=== PATIENT | female | born 1960 | race Hispanic/Latino ===

== ENCOUNTER → 2023-04-12 10:57 | Outpatient (REF) | payer OTHER, SELFPAY | LOC: RCS 10:57 | PROVIDERS: ATTENDING PHYSICIAN Internal Medicine Cardiovascular Disease; FAMILY PHYSICIAN Nurse Practitioner Adult Health | DX: R07.89 Other chest pain (principal) | CPT/HCPCS: 93017 ==

== ENCOUNTER → 2023-04-19 14:53 | Outpatient (REF) | payer OTHER, SELFPAY | LOC: DHCBC HW 14:53 | PROVIDERS: ATTENDING PHYSICIAN Internal Medicine Cardiovascular Disease; FAMILY PHYSICIAN Nurse Practitioner Adult Health | DX: I51.7 Cardiomegaly (principal) | CPT/HCPCS: 93306 ==

== ENCOUNTER 2024-11-27 03:31 | Emergency (ER) | payer OTHER, SELFPAY ==
[2024-11-27 03:39] VITALS: BP 160/92
[2024-11-27 04:30] LABS: Hematocrit 34.3 % (37.0-47.0); Hemoglobin 10.9 g/dL (12.0-16.0); Mean Corp Hgb Conc. 31.8 g/dL (33.0-37.0); Mean Corpuscular Volume 82.9 fL (81.0-99.0); Nucleated Red Blood Cells % 0 %; Platelet Count 253 10^3/uL (130-400); Red Cell Dist. Width 13.6 % (11.5-14.5)
[2024-11-27 04:53] LABS: ALT (SGPT) 17 U/L (0-35); AST (SGOT) 23 U/L (14-36); Albumin 3.7 g/dl (3.5-5.0); Alkaline Phosphatase 51 U/L (38-126); Blood Urea Nitrogen 24 mg/dl (7-17); Calcium 8.9 mg/dl (8.4-10.2); Carbon Dioxide 27 mmol/L (22-30); Chloride 112 mmol/L (98-107); Glucose 103 mg/dl (70-99); Potassium 4.0 mmol/L (3.5-5.1); Sodium 142 mmol/L (135-145); Total Protein 6.6 g/dl (6.3-8.2); eGFR > 60.00
[2024-11-27 05:16] VITALS: BP 133/82
--- NOTE | 2024-11-27 05:18 | EDRN ---
patient endorses substernal chest pain associated with cough x several days.
[2024-11-27] MEDS: TORADOL 30 MG IV (05:37)
[2024-11-27 05:39] VITALS: BMI 35.0
[2024-11-27 06:21] VITALS: BP 118/71
[2024-11-27 06:24] LABS: Troponin I < 0.012 ng/ml
--- NOTE | 2024-11-27 06:34 | ED.GENMED ---
History of Present Illness
General
Chief Complaint: Chest Problem
Source: patient and family
Exam Limitations: none
Time Seen by Provider: 11/27/24 04:57
Nursing documentation reviewed up to this point in time: agreed with
History of Present Illness
History of Present Illness:
64-year-old female past medical history of hypertension presenting to the emergency department today with concerns of chest discomfort while coughing has been ongoing over the past week. Symptoms possibly worse with coughing improved with not
coughing. Additionally has been on Cipro for potential UTI over the past few days. Denies any nausea vomiting shortness of breath
Past History
Past History
ED Past Medical History: HTN
ED Past Surgical History: Gynecological
Social History
Tobacco: Non-smoker
Alcohol: None
Drug: None
Living: with family
Employment: Employed
Family History
Family History: Other (nc)
Review of Systems
Review of Systems
Allergies reviewed?: Yes
All Other Systems: ROS reviewed and negative except as documented in HPI and ROS
Phy Exam
Physical Exam
Physical Exam:
GENERAL: Alert , in no apparent distress
EYE: pupils equal and reactive
NECK: Supple, no significant adenopathy.
ENT: o/p clr, mmm.
CARDIAC: Regular rate and rhythm .
LUNGS: Clear breath sounds bilaterally, no acute respiratory distress, no wheezes/rales/rhonchi
ABDOMEN: Soft, without focal tenderness, no r/g, no cvat
NEUROLOGICAL: Alert and oriented, no focal neuro deficits
SKIN: Warm and dry, skin intact.
MUSCULOSKELETAL: No edema, well perfused.
PSYCH: Normal and appropriate interaction.
Course
Orders/Labs/Results
Orders:
Orders
11/27/24 03:38
Electrocardiogram (*1) Urgent
Reason for Study: Chest Pain
11/27/24 03:39
EKG- Treatment ONCE
11/27/24 03:42
Chest [CR Chest - 2 Views ] Urgent
Comment:
Reason For Exam: COUGH
11/27/24 04:20
CMP [Comprehensive Metabolic Panel] Urgent
Complete Blood Count/With Diff Urgent
11/27/24 05:27
Ketorolac [Toradol] 30 mg IV NOW STA
11/27/24 05:36
Troponin I Urgent
Abnormal Lab Results
11/27/24
04:20
RBC 4.14 L 10^6/uL
(4.20-5.40)
Hgb 10.9 L g/dL
(12.0-16.0)
Hct 34.3 L %
(37.0-47.0)
MCH 26.3 L pg
(27.0-31.0)
MCHC 31.8 L g/dL
(33.0-37.0)
Immature Gran % 0.6 H %
(0-0.5)
Chloride 112 H mmol/L
(98-107)
BUN 24 H mg/dl
(7-17)
Glucose 103 H mg/dl
(70-99)
11/27/24 04:20
11/27/24 04:20
Vital Signs
Initial and Last Documented VS:
Initial Vital Signs
Temp Pulse Resp BP Pulse Ox
98.2 F 66 22 160/92 97
11/27/24 03:39 11/27/24 03:39 11/27/24 03:39 11/27/24 03:39 11/27/24 03:39
Last Documented Vital Signs
Temp Pulse Resp BP Pulse Ox
98.1 F 62 16 118/71 100
11/27/24 05:16 11/27/24 06:21 11/27/24 06:21 11/27/24 06:21 11/27/24 06:21
MDM/Problems Addressed
MDM/Problems Addressed:
64-year-old female presenting to the emergency department today with concerns of chest discomfort across the anterior aspect of the chest when coughing has had a cough over the past week or so has had some mild upper respiratory symptoms. Has been
on ciprofloxacin for potential urinary tract infection. On arrival here patient's vital signs showing elevated blood pressure otherwise vital signs are normal. Other labs at patient's baseline troponin negative EKG normal chest x-ray without
emergent findings. No evidence of any acute coronary syndrome likely secondary to patient's upper respiratory syndrome plan for symptomatic treatment otherwise advised for close primary care follow-up. Return precautions given.
*Pulse Oximetry
SaO2: 100
Oxygen Mode of Delivery: Room air
Patient hypoxic: no (100)
*Critical Care Note
Total Time (30-74mins, 75-104mins- exclusive of procedures): Not Applicable
ED Attending Note
-
Portions of this chart may have been created with voice recognition software.� Occasional wrong word or��sound alike� substitutions may have occurred due to the inherent limitations of voice recognition software.
Discharge Plan
Departure
Patient Disposition: Home (Routine Discharge)
Date of Disposition: 11/27/24
Time of Disposition: 06:35
Patient with high blood pressure during this ER visit?: No
Condition: Good
Covid-19: Not Applicable
Discharge Problem:
Chest pain
Instructions: Chest Pain PCP Follow Up
Prescriptions:
New
dextromethorphan HBr 15 mg/5 mL liquid
15 mg PO Q8H Qty: 118 0RF
No Action
Xanax
0.5 mg PO DAILY PRN (Reason: anxiety)
losartan
40 mg PO DAILY
Referrals:
Avel Sandoval DO [Family Provider, Family Practice]
Activity Restrictions/Additional Instructions:
You came to the emergency department today with concerns of cough and chest pain. Here he had a reassuring assessment. Please take the cough medication and follow-up closely with the primary care doctor. Return for any worsening, new or
concerning symptoms.
Interventions
Interventions:
*Risk Screen - Suicide Last Done: 11/27/24 03:39
*General Assessment Last Done: 11/27/24 05:16
*Neglect/Abuse Screening Last Done: 11/27/24 03:39
*ED- Fall Risk Assessment Last Done: 11/27/24 05:16
*ED COVID-19 Vaccine History Last Done: 11/27/24 05:16
*ED Influenza Vaccine History Last Done: 11/27/24 05:16
ED- Cardiac Assessment Last Done: 11/27/24 05:16
ED- Pulmonary Assessment Last Done: 11/27/24 05:16
Discharge Date and Time
Print Language: [id number]
[2024-11-27 06:44] VITALS: BP 121/73
== END 2024-11-27 06:47 | disposition home or self-care (01) ==
LOC: EMR 03:31
PROVIDERS: Physician Assistant; EMERGENCY PHYSICIAN Emergency Medicine; FAMILY PHYSICIAN Family Medicine
DX: R07.89 Other chest pain (principal); R05.9 Cough, unspecified; I10 Essential (primary) hypertension
CPT/HCPCS: 96374; 99285; 71046; 80053; 84484; 85025; 93005